=== PATIENT | female | born 1980 | race Caucasian/White ===

== ENCOUNTER 2020-04-04 23:51 | Emergency (ER) | payer OTHER ==
[~2020-04-04] VITALS: Ht 162.6 cm; Wt 96.8 kg
[2020-04-05 00:15] VITALS: BP 134/75; Ht 162.6 cm; Wt 96.8 kg
[2020-04-05 01:31] LABS: microscopic required? YES; urine erythrocyte TRACE (NEGATIVE)
[2020-04-05 01:43] LABS: BASOPHIL % 0.9 % (0.2-1.3); PLATELET COUNT 446 x10^3mcL (179-408); RED CELL DISTRIBUTION WIDTH 16.1 % (12.3-17.7)
[2020-04-05 01:44] LABS: rbc morphology (normal/abnorm) NORMAL (NORMAL)
[2020-04-05 01:52] LABS: CALCIUM 8.7 mg/dL (8.5-10.1); CREATININE SERUM 1.1 mg/dL (0.6-1.0); POTASSIUM SERUM 4.4 mmol/L (3.5-5.1)
[2020-04-05 01:57] LABS: ALBUMIN 3.4 g/dL (3.4-5.0); BILIRUBIN TOTAL 0.13 mg/dL (0.20-1.00); TOTAL PROTEIN, SERUM 7.4 g/dL (6.4-8.2)
== END 2020-04-05 02:25 | disposition left against medical advice (07) ==
LOC: ED 23:51
PROVIDERS: Emergency Medicine
DX: S39.012A Strain of muscle, fascia and tendon of lower back, initial encounter (principal); X58.XXXA Exposure to other specified factors, initial encounter; Y93.89 Activity, other specified; Y92.89 Other specified places as the place of occurrence of the external cause; Y99.8 Other external cause status